=== PATIENT | male | born 1960 | race Hispanic/Latino ===

== ENCOUNTER 2023-01-21 07:51 | Observation (INO) | payer BC ==
[~2023-01-21] VITALS: Ht 160 cm; Wt 90.7 kg
[2023-01-21 08:24] LABS: BASOPHILS % (AUTO) 0.6 % (0.0-5.0); EOSINOPHILS % (AUTO) 1.8 % (0.0-8.0); HEMATOCRIT 43.3 % (42-54); LYMPHOCYTES % (AUTO) 25.4 % (21.0-51.0); MEAN CORPUSCULAR HEMOGLOBIN 33.3 pg (27.0-33.0); MEAN CORPUSCULAR HGB CONC 35.3 g/dL (32.0-36.0); MEAN CORPUSCULAR VOLUME 94.3 fL (79-99); MONOCYTES % (AUTO) 7.2 % (3.0-13.0); NEUTROPHILS % (AUTO) 64.7 % (40.0-77.0); PLATELET COUNT (AUTO) 150 K/uL (130-400); RED BLOOD CELL COUNT(AUTO) 4.59 MIL/uL (4.50-6.20); RED CELL DISTRIBUTION WIDTH 13.2 % (11.0-15.5); WHITE BLOOD COUNT (AUTO) 7.1 K/uL (4.8-10.8)
[2023-01-21 08:31] LABS: CREATININE 1.1 mg/dL (0.5-1.5); POTASSIUM 4.6 mmol/L (3.5-5.1)
[2023-01-21 08:38] LABS: ALBUMIN 3.7 g/dL (3.5-5.0); TOTAL PROTEIN, SERUM 7.9 g/dL (6.0-8.3)
[2023-01-21] MEDS ORDERED: IOHEXOL-350 75 ML VIAL IV ONE (10:36)
[2023-01-21] MEDS ORDERED: ACETAMINOPHEN 325 MG TAB PO PRN (11:00)
[2023-01-21] MEDS ORDERED: ONDANSETRON 4MG INJ IVP PRN (11:00)
[2023-01-21] MEDS ORDERED: HEPARIN 5,000 UNIT VIAL SQ SCH (11:00)
[2023-01-21 20:45] VITALS: BP 138/76
[2023-01-21] MEDS ORDERED: ATORVASTATIN 40 MG TABLET PO SCH (21:00)
[2023-01-22] MEDS ORDERED: ASPIRIN 325MG EC TAB PO SCH (09:00)
== END 2023-01-21 20:44 | disposition short-term general hospital (02) ==
LOC: EDH 07:51 → EDHIP 10:38
PROVIDERS: ADMIT Hospitalist; ATTEND Hospitalist
DX: I63.9 Cerebral infarction, unspecified (principal); Z20.822 Contact with and (suspected) exposure to COVID-19; I10 Essential (primary) hypertension; E66.9 Obesity, unspecified; G51.0 Bell's palsy; R29.701 NIHSS score 1; Z79.82 Long term (current) use of aspirin; Z79.899 Other long term (current) drug therapy; Z98.890 Other specified postprocedural states; Z68.35 Body mass index [BMI] 35.0-35.9, adult
CPT/HCPCS: 96372; 84484; 80053; 85025; 36415; 87635; 71045; 70450; 70496; 70498; 70553; 70544; 70549; 99291; 93005; G0378 ×10; J1644; Q9967

== ENCOUNTER → 2024-11-03 | Outpatient (CLI) | payer OTHER ==
[~2024-11-03] MED LIST: IOHEXOL 350 MG/ML 100ML INFUS..BTL IV ONE; metoPROLOL tartRATE 1 MG/ML 5ML VIAL IV ONE
--- NOTE | 2024-11-03 20:07 | HMCIMG ---
CT CARDIAC ANGIO W/CONT. CCTA HISTORY: Shortness of breath COMPARISON: None TECHNIQUE: Multiple sequential axial images of the chest were obtained along with the CT angiogram of the chest study. Patient was given 100 cc of Omnipaque through intravenous route. FINDINGS: There is no evidence of pulmonary nodule or parenchymal disease. No pleural effusion or pericardial effusion is seen. There is no evidence of pneumothorax. There are normal size mediastinal and hilar lymph nodes. Coronary arterial calcifications are seen. The heart is enlarged. Degenerative changes of the thoracolumbar spine are present. IMPRESSION: 1. No evidence of pulmonary nodule or effusion is seen. Please see CT angiogram report of coronary arteries.
--- NOTE | 2024-11-05 18:04 | CARDIOLOGY ---
RAD REPORT: CORNARY CT ANGIO RADIOLOGY REPORT: CORONARY CT ANGIOGRAPHY DATE: Nov 05, 2024 QUALITY: Excellent CLINICAL HISTORY AND INDICATION: [ SLADE ] TECHNIQUE: After obtaining a preliminary tobacco stemmer machine image, contrast imaging performed on an [employer] [id number] scanner. A dedicated, limited window, coronary imaging protocol was used, with single breath-hold, retrospective ECG gating, and automated arrhythmia rejection. 100 cc of low osmolar contrast agent: Omnipaque 350 was delivered via a 18-gauge IV catheter in the right antecubital fossa, using a power injector and followed by 60 cc of normal saline bolus as a chaser. Collimated images were reformatted at 0.5 mm intervals, and sent to an offline independent workstation for interpretation, using 3D anatomic reconstructions: Curved multiplanar reconstructions, maximum intensity projections, and multiplanar imaging. 10 mg IV metoprolol was administered prior to scanning. 0.8 mg SL nitroglycerin was given. CORONARY ARTERY DESCRIPTIONS: The coronary arteries arise in normal position. Left main coronary artery: Normal caliber vessel that bifurcates into the LAD and LCx. No stenosis. Left anterior descending coronary artery: Normal caliber vessel and gives rise to diagonal and septal branches. There is calcified plaque in the proximal LAD with 20-30% stenosis. Left circumflex coronary artery: Normal caliber, nondominant and gives rise to three OM branches. No stenosis. Right coronary artery: Large, dominant vessel giving rise to the PL and PDA branches. No stenosis. CAD-RADs: 2, mild non-obstructive CAD. Thoracic Aorta: Normal diameter. Irais Jarquin MD Cardiovascular Disease [facility] IRAIS JARQUIN MD Nov 05, 2024 18:04
== END | disposition home or self-care (01) ==
LOC: RAH 11:22
PROVIDERS: ATTEND Internal Medicine Cardiovascular Disease
DX: I25.10 Atherosclerotic heart disease of native coronary artery without angina pectoris (principal); M47.815 Spondylosis without myelopathy or radiculopathy, thoracolumbar region; R06.02 Shortness of breath
CPT/HCPCS: 75574; J3490; Q9967